=== PATIENT | female | born 1985 | race Caucasian/White ===

== ENCOUNTER 2018-01-17 10:27 | Emergency (ER) | payer SELFPAY ==
[2018-01-17 10:44] VITALS: BP 124/81; PULSE 89; RESP 16; TEMP 98.9; O2SAT 100
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
== END 2018-01-17 11:10 | disposition home or self-care (01) ==
LOC: C.ER 10:27
DX: F43.0 Acute stress reaction (principal)